=== PATIENT | male | born 1980 | race Caucasian/White ===

== ENCOUNTER → 2017-04-23 | Outpatient (CLI) | payer BC ==
[~2017-04-23] MED LIST: CLR10 PO; OXYC-57 PO; PRLSR20 PO; SERT-234 PO; SYMIN160 INH
--- NOTE | 2017-04-23 13:10 | DIAGNOSTIC IMAGING REPORT ---
ULTRASOUND LEFT GROIN NONVASCULAR CLINICAL HISTORY: Left inguinal hernia. Left groin pain. COMPARISON STUDY: No priors. FINDINGS: Real-time grayscale sonography of the left groin is performed to assess for inguinal hernia. There is a small reducible fat-containing inguinal hernia. This measures up to 1.4 cm. No inguinal lymphadenopathy is seen. IMPRESSION: There is a small reducible fat-containing left inguinal hernia. Electronically signed by: Vignesh Davenport M.D. 04/23/2017 1:09 PM Dictated Date/Time: 04/23/2017 1:08 PM
== END | disposition home or self-care (01) ==
LOC: C.ULTR 12:30
PROVIDERS: ATTEND Nurse Practitioner Family
DX: R10.32 Left lower quadrant pain (principal); Z98.890 Other specified postprocedural states

== ENCOUNTER → 2017-05-28 | Outpatient (CLI) | payer BC ==
[2017-05-28 16:23] LABS: BASO % 0.6 %; BASO ABS # 0.05 K/uL (0-0.2); COMPLETE YES; EOS % 4.8 %; HEMATOCRIT 41.8 % (42-52); LYMPH % 30.5 %; LYMPH ABS # 2.47 K/uL (1.2-3.4); MEAN CELL VOLUME 88.4 fL (80-100); MEAN CORPUSCULAR HEMOGLOBIN 31.3 pg (25-34); MEAN CORPUSCULAR HGB CONC 35.4 g/dl (32-36); MEAN PLATELET VOLUME 10.6 fL (7.4-10.4); MONO % 9.8 %; NEUT % 53.3 %; PLATELET COUNT 248 K/uL (130-400); RED BLOOD COUNT 4.73 M/uL (4.7-6.1); WHITE BLOOD COUNT 8.09 K/uL (4.8-10.8)
[2017-05-28 16:48] LABS: BLOOD UREA NITROGEN 10 mg/dl (7-18); BUN/CREATININE RATIO 8.9 (10-20); CALCIUM 9.2 mg/dl (8.5-10.1); CARBON DIOXIDE 27 mmol/L (21-32); CHLORIDE 103 mmol/L (98-107); GLUCOSE 83 mg/dl (70-99); POTASSIUM 3.6 mmol/L (3.5-5.1); SODIUM 140 mmol/L (136-145)
== END | disposition home or self-care (01) ==
LOC: C.LAB1850 14:32
PROVIDERS: ATTEND Surgery
DX: K40.91 Unilateral inguinal hernia, without obstruction or gangrene, recurrent (principal)

== ENCOUNTER 2017-06-04 07:28 | Day surgery (SDC) | payer BC ==
[2017-05-30 10:25] VITALS: BMI 33.0
[~2017-06-04] VITALS: Ht 175.3 cm; Wt 102.3 kg
[~2017-06-04 07:28] MED LIST changes: +CEFAZOLIN 2000 MG/60 ML D5W IV SCH; +LACTATED RINGER'S 1000ML 1,000 ML IV SCH; -OXYC-57 PO
[2017-06-04] MEDS ORDERED: ONDANSETRON INJ 2 MG/ML 2 ML VIAL ONE (07:47)
[2017-06-04] MEDS ORDERED: MIDAZOLAM HCL 1 MG/ML 2ML VIAL ONE (07:47)
[2017-06-04] MEDS ORDERED: GLYCOPYRROLATE INJ 0.2 MG/ML VIAL ONE (07:47)
[2017-06-04] MEDS ORDERED: DEXAMETHASONE SOD INJ 4 MG/ML VIAL ONE (07:47)
[2017-06-04] MEDS ORDERED: FENTANYL CITRATE INJ 50 MCG/1 ML 2 ML VIAL ONE ×3 (07:47→10:32)
[2017-06-04] MEDS ORDERED: NEOSTIGMINE METHYLSULFATE 5 MG/5 ML SYR ONE (07:47)
[2017-06-04] MEDS ORDERED: PROPOFOL IV EMULSION 10 MG/ML 20 ML VIAL IV ONE (07:47)
[2017-06-04] MEDS ORDERED: ROCURONIUM BROMIDE 10 MG/ML 5 ML VIAL IV ONE (07:47)
[2017-06-04] MEDS ORDERED: LIDOCAINE HCL 2% 2 ML VIAL (20MG/ML) ONE (07:47)
[2017-06-04 07:50] VITALS: BP 147/84; PULSE 64; TEMP 36.7; O2SAT 95; Ht 175.3 cm; Wt 102.3 kg
[2017-06-04] MEDS ORDERED: BUPIVACAINE 0.5 % 5 MG/1 ML MPF 30ML VIAL ONE (08:43)
--- NOTE | 2017-06-04 08:59 | History & Physical Bridge Note ---
H&P Re-Evaluation Bridge Note: I have examined the patient, reviewed the History & Physical and in the interval since the performance of the History & Physical I have noted the following changes of clinical significance: No changes noted
[2017-06-04] MEDS ORDERED: LABETALOL HCL IV 5 MG/ML 20ML IV PRN (09:30)
[2017-06-04] MEDS ORDERED: ONDANSETRON INJ 2 MG/ML 2 ML VIAL IV PRN ×2 (09:30→11:45)
[2017-06-04] MEDS ORDERED: HYDROmorphone INJ 2 MG/ML SYR/VIAL IV PRN (09:30)
[2017-06-04] MEDS ORDERED: KETOROLAC TROMETHAMINE 30 MG/ML VIAL IV. PRN (09:30)
[2017-06-04] MEDS ORDERED: ATROPINE SULFATE 0.1 MG/ML 5ML SYR IV PRN (09:30)
[2017-06-04] MEDS ORDERED: MORPHINE SULFATE PF 2MG/2ML SYR ONE ×2 (10:04→10:05)
[2017-06-04] MEDS ORDERED: EpHEDrine SULFATE INJ 50 MG/ML AMP ONE (10:15)
[2017-06-04] MEDS ORDERED: SODIUM CHLORIDE 0.9% 1000ML 1,000 ML IV SCH (11:33)
[2017-06-04] MEDS ORDERED: OXYC-57 PO (11:35)
--- NOTE | 2017-06-04 11:39 | Discharge Instructions ---
Discharge Instructions Date of Service Jun 04, 2017. Admission Reason for Admission: Left Inguinal Hernia Discharge Discharge Diagnosis / Problem: Left Inguinal Hernia Discharge Goals Goal(s): Decrease discomfort, Improve function Activity Recommendations Activity Limitations: as noted below Lifting Limitations: no more than 10 pounds Exercise/Sports Limitations: until after follow-up appointment May Resume Sexual Activity: after follow-up appointment Shower/Bathe: tomorrow Driving or Machine Use: resume 1 day after discharge . Instructions / Follow-Up Instructions / Follow-Up Please follow-up with Dr. Browne in the office in 1-2 weeks. Please call the office at [phone] to make a follow-up appointment if you do not have one already. Please call the office with any questions or concerns. Current Hospital Diet Patient's current hospital diet: Discharge Diet Recommended Diet: Regular Diet Procedures Procedures Performed: Laparoscopic Bilateral Inguinal Hernia Repair with Mesh Pending Studies Studies pending at discharge: no Medical Emergencies . Who to Call and When: Medical Emergencies: If at any time you feel your situation is an emergency, please call 911 immediately. . Non-Emergent Contact Non-Emergency issues call your: Primary Care Provider, Surgeon Call Non-Emergent contact if: temperature is above 101.5, your pain is not controlled, wound has increased drainage, wound has increased redness . "Provider Documentation" section prepared by Hemalatha Chiu. . VTE Core Measure Inpt VTE Proph given/why not?: SCD's [place] Drug Monitoring Program Search Results: patient reviewed within database, no issues identified
[2017-06-04] MEDS ORDERED: OXYCODONE/ACETAMINOPHEN 5-325 TAB PO PRN ×2 (11:45)
--- NOTE | 2017-06-04 11:46 | [facility] Post Operative Brief Note ---
Immediate Operative Summary Operative Date Jun 04, 2017. Pre-Operative Diagnosis Recurrent Left Inguinal Hernia Post-Operative Diagnosis Recurrent Left Inguinal Hernia, right inguinal hernia Procedure(s) Performed Laparoscopic Bilateral Inguinal Hernia Repair with Mesh (left recurrent) Surgeon Dr. Browne [employer] Surgeon(s) EDDIE Winston Estimated Blood Loss 3ml Findings Significant scarring from prior left inguinal hernia repair, recurrent indirect hernia reduced. Clips applied to peritoneal tear. Right with indirect inguinal hernia. Progrip mesh placed bilaterally. Specimens none per surgeon Drains None Anesthesia GETA Complication(s) None Disposition Recovery Room / PACU
--- NOTE | 2017-06-04 11:54 | [facility] Operative Report ---
Operative Report Operative Date Jun 04, 2017. Pre-Operative Diagnosis Recurrent Left Inguinal Hernia Post-Operative Diagnosis recurrent left indirect inguinal hernia, right indirect inguinal hernia Procedure(s) Performed laparoscopic bilateral inguinal hernia repair (left recurrent) Surgeon Dr. Browne Rn Embedded Surgeon(s) EDDIE Winston Estimated Blood Loss 3ml Findings Significant scarring from prior left inguinal hernia repair, recurrent indirect hernia reduced. Clips applied to peritoneal tear. 5mm trocar placed in left lower quadrant to decompress pneumoperitoneum. Right with indirect inguinal hernia. Progrip mesh placed bilaterally. Specimens none per surgeon Drains None Anesthesia GETA Complication(s) None Disposition Recovery Room / PACU Indications 37 year old male with recurrent left inguinal hernia repair, plan for laparoscopic left inguinal hernia repair, possible right. The risks of the procedure were discussed, all questions were answered, and the patient agreed to proceed with surgery as planned. Description of Procedure The patient was properly identified, consented, and taken to the operating room where he was placed in the supine position. General endotracheal anesthesia was induced. SCDs and a safety belt were placed. A foreman catheter was placed. Preoperative antibiotics were administered. The patient's groins and abdomen were prepped and draped in the standard sterile fashion. Surgical timeout was performed and all parties were in agreement that this was the correct patient and procedure to be performed and we continued as planned. A transverse infraumbilical incision was made to the right of midline with electrocautery and deepened down to the fascia with blunt dissection. A transverse incision was made in the anterior rectus sheath on the right. The rectus muscle was pulled laterally exposing the posterior rectus sheath. A [place] was used to bluntly dissect the preperitoneal space down to the pubic symphysis. This was then replaced with a laparoscopic preperitoneal dissection balloon, which was inflated under direct visualization and held in place for approximately 30 seconds. This was then removed and the preperitoneal space was insufflated with carbon dioxide which the patient tolerated without incident. Two 5 mm ports were then placed in the midline. Dissection started on the left, beginning laterally at the anterior superior iliac spine. Wilfred's ligament was then dissected medially. There was significant scarring from the prior inguinal hernia repair and the peritoneum was partially fused with the abdominal wall. The cord structures were circumferentially dissected. A tear in the peritoneum was closed with the 5mm clip hat forming machine feeder. A 5mm port was placed in the left lower quadrant to decompress the pneumoperitoneum. A moderate recurrent indirect hernia was noted. It was dissected away from the cord structures. The contralateral side was then dissected in a similar manner, and an indirect hernia and cord lipoma were noted and reduced. Progrip mesh was placed bilaterally and covered the direct, indirect, and femoral spaces on both sides. The mesh was held in place, the ports were removed, and the space was allowed to collapse. The anterior rectus sheath fascia was closed with 3-0 Vicryl suture. The skin of all port sites were closed with 4-0 Monocryl subcuticular suture, and Dermabond was placed over the incisions. The patient was extubated in the operating room and taken to the PACU for recovery without apparent incident. Any air in the scrotum was reduced, and the testicles were confirmed to be in the scrotum. All sponge, instrument, and needle counts were correct at the conclusion of the procedure. The patient tolerated the procedure well. I attest to the content of the Intraoperative Record and any orders documented therein. Any exceptions are noted below.
[2017-06-04 12:15] VITALS: BP 134/79; PULSE 87; TEMP 37; O2SAT 95
[2017-06-04 12:45] VITALS: BP 139/76; PULSE 89; TEMP 37; O2SAT 95
--- NOTE | 2017-06-04 13:08 | Anesthesiology Progress Note ---
Anesthesia Post Op Note Date & Time Jun 04, 2017 at 13:08 Vital Signs Vital Signs Past 12 Hours Date Time Temp Pulse Resp B/P (MAP) Pulse Ox O2 Delivery O2 Flow Rate FiO2 06/04/17 12:45 37 89 17 139/76 95 0 06/04/17 12:15 37 87 16 134/79 95 0 06/04/17 12:11 78 15 92 06/04/17 12:11 80 15 06/04/17 12:10 146/83 06/04/17 12:06 81 18 162/81 92 06/04/17 12:06 82 18 06/04/17 12:03 157/85 06/04/17 12:01 71 14 06/04/17 12:01 71 14 170/87 94 06/04/17 11:59 36.7 83 16 157/85 96 Room Air Mask 06/04/17 11:56 71 19 06/04/17 11:56 70 19 155/91 94 06/04/17 11:55 73 21 95 06/04/17 11:55 73 21 95 06/04/17 11:55 73 21 06/04/17 11:55 73 21 06/04/17 11:53 151/94 06/04/17 11:53 151/94 06/04/17 11:45 74 19 72/94 (106) 93 Mask 10 06/04/17 11:35 36.2 83 13 169/91 (109) 99 Mask 10 06/04/17 07:50 36.7 64 16 147/84 (105) 95 Room Air Notes Mental Status: alert / awake / arousable, participated in evaluation Pt Amnestic to Procedure: Yes Nausea / Vomiting: adequately controlled Pain: adequately controlled Airway Patency, RR, SpO2: stable & adequate BP & HR: stable & adequate Hydration State: stable & adequate Anesthetic Complications: no major complications apparent
[2017-06-04 13:14] VITALS: BP 134/69; PULSE 87; TEMP 37.2; O2SAT 96
[2017-06-04 13:45] VITALS: BP 130/68; PULSE 87; TEMP 36.8; O2SAT 97
[2017-06-04 14:45] VITALS: BP 136/67; PULSE 91; TEMP 36.8; O2SAT 96
== END 2017-06-04 15:50 | disposition home or self-care (01) ==
LOC: C.ACU 07:28
PROVIDERS: ATTEND Surgery
DX: K40.91 Unilateral inguinal hernia, without obstruction or gangrene, recurrent (principal); K40.90 Unilateral inguinal hernia, without obstruction or gangrene, not specified as recurrent; I10 Essential (primary) hypertension; E78.5 Hyperlipidemia, unspecified; G47.30 Sleep apnea, unspecified; Z79.899 Other long term (current) drug therapy